=== PATIENT | female | born 1975 | race African-American/Black ===

== ENCOUNTER 2016-10-14 19:03 | Observation (INO) | payer MEDICAID, OTHER ==
[~2016-10-14] VITALS: Ht 172.7 cm; Wt 65.0 kg
[~2016-10-14 19:03] MED LIST: METH750T2 PO; PRED50 PO
[2016-10-14 19:06] VITALS: BP 142/90; PULSE 102; RESP 16; TEMP 98.6; O2SAT 99
[2016-10-14] MEDS ORDERED: PRED5TAB PO (19:57)
[2016-10-14 20:03] VITALS: BP 133/76; PULSE 104; RESP 18; O2SAT 96
--- NOTE | 2016-10-14 20:11 | PD ---
HPI . Vaginal bleeding Chief Complaint: Diabetes Territory Manager Problem/Complaint Time Seen by Provider: 19:35 Travel History International Travel<30 days: No Contact w/Intl Traveler<30days: No Traveled to known affect area: No History of Present Illness HPI This patient presents with the acute onset of heavy vaginal bleeding. Onset was about 6 hours ago. She is passing clots. The bleeding is associated with pelvic pain. She states the pelvic pain is severe. No modifying factors. She reports as normal menstrual cycle approximately 6 weeks ago. She states that her menstrual cycles are usually regular. She states that she has had some spotting for the past couple of weeks. She denies any antecedent dyspareunia. She has had a subjective fever today. [facility] Past Medical History Medical History: Denies Significant Hx Diminished Hearing: No Kidney Stones: Yes Immunizations Current: Yes Tetanus Vaccination: < 5 Years Influenza Vaccination: No ?: Unknown LMP: 10/14/16 : 4 Para: 3 Miscarriage: 0 : 0 Past Surgical History Surgical History: No Previous Surgery Social History Alcohol Use: No Tobacco Use: No Substance Use: No Allergies-Medications (Allergen,Severity, Reaction): Coded Allergies: No Known Allergies (Verified , 03/02/13) Reported Meds & Prescriptions Reported Meds & Active Scripts Active Reported Prednisone 5 Mg Tab 5 Mg PO BID Review of Systems Except as stated in HPI: all other systems reviewed are Neg General / Constitutional: Positive: Fever, Chills Genitourinary: Positive: Pelvic Pain, Dysmenorrhea, Vaginal Bleeding, No: Urgency, Frequency, Dysuria, Dyspareunia, Discharge Physical Exam Narrative GENERAL: Awake and alert and uncomfortable appearing. SKIN: Warm and dry. HEAD: Atraumatic. Normocephalic. EYES: Pupils equal and round. ENT: No nasal bleeding or discharge. Mucous membranes pink and moist. NECK: Trachea midline. Neck supple. CARDIOVASCULAR: Regular rate and rhythm. RESPIRATORY: No accessory muscle use. GASTROINTESTINAL: Abdomen soft. Suprapubic tenderness. Nondistended. : Blood pooling in the vaginal vault. Samples were not obtained because of the heavy bleeding. On bimanual exam, the os is closed. The right adnexa and ovary feel normal and are nontender. The left adnexa is full and tender. MUSCULOSKELETAL: No obvious deformities. No edema. NEUROLOGICAL: Awake and alert. No obvious cranial nerve deficits. Motor grossly within normal limits. Normal speech. PSYCHIATRIC: Appropriate mood and affect; insight and judgment normal. Data Data Last Documented VS Vital Signs Date Time Temp Pulse Resp B/P Pulse Ox O2 Delivery O2 Flow Rate FiO2 10/14/16 23:10 87 18 113/70 100 Room Air 10/14/16 19:06 98.6 Orders Ed Urine Pregnancytest Poc (10/14/16 19:35) Beta Hcg (Quant/Titer) (10/14/16 20:06) Type And Screen (10/14/16 20:06) Us Pelvis (Ques Pr/Ect)W Trans (10/14/16 ) Iv Access Insert/Monitor (10/14/16 20:06) Sodium Chloride 0.9% Flush (Ns Flush) (10/14/16 20:15) Ondansetron Inj (Zofran Inj) (10/14/16 20:15) Hydromorphone Pf Inj (Dilaudid Pf Inj) (10/14/16 20:15) Ed Poc Ultrasound (10/14/16 20:06) Complete Blood Count With Diff (10/14/16 20:23) Basic Metabolic Panel (Bmp) (10/14/16 20:23) Hydromorphone Pf Inj (Dilaudid Pf Inj) (10/14/16 20:45) Morphine Inj (Morphine Inj) (10/14/16 21:30) Labs Laboratory Tests Test 10/14/16 10/14/16 20:27 20:28 Sodium Level 137 MEQ/L Potassium Level 3.7 MEQ/L Chloride Level 104 MEQ/L Carbon Dioxide Level 25.5 MEQ/L Anion Gap 8 MEQ/L Blood Urea Nitrogen 8 MG/DL Creatinine 0.82 MG/DL Estimat Glomerular Filtration 94 ML/MIN Rate Random Glucose 100 MG/DL Calcium Level 8.5 MG/DL Human Chorionic Gonadotropin, 2670 MIU/ML Quant White Blood Count 10.0 TH/MM3 Red Blood Count 4.52 MIL/MM3 Hemoglobin 12.4 GM/DL Hematocrit 38.0 % Mean Corpuscular Volume 84.1 FL Mean Corpuscular Hemoglobin 27.4 PG Mean Corpuscular Hemoglobin 32.6 % Concent Red Cell Distribution Width 14.1 % Platelet Count 331 TH/MM3 Mean Platelet Volume 7.3 FL Neutrophils (%) (Auto) 68.4 % Lymphocytes (%) (Auto) 24.5 % Monocytes (%) (Auto) 5.8 % Eosinophils (%) (Auto) 1.0 % Basophils (%) (Auto) 0.3 % Neutrophils # (Auto) 6.9 TH/MM3 Lymphocytes # (Auto) 2.4 TH/MM3 Monocytes # (Auto) 0.6 TH/MM3 Eosinophils # (Auto) 0.1 TH/MM3 Basophils # (Auto) 0.0 TH/MM3 CBC Comment DIFF FINAL Differential Comment Blood Type O POSITIVE Antibody Screen NEGATIVE MDM Medical Decision Making Medical Screen Exam Complete: Yes Emergency Medical Condition: Yes Differential Diagnosis Differential diagnosis of vaginal bleeding includes but is not limited to dysfunctional uterine bleeding, normal menstrual cycle, ectopic , spontaneous AB, PID. Narrative Course This patient presents with the acute onset of heavy vaginal bleeding. Her last normal menstrual cycle was 6 weeks ago. Her urine test is positive. Quantitative hCG, type and Rh and pelvic ultrasound have been ordered. IV access has been obtained. CBC Diagram 10/14/16 20:28 BMP Diagram 10/14/16 20:27 Quantitative hCG is about 2600. Her blood type is O+. The patient has continued to have severe pain and heavy vaginal bleeding. She has had 2 doses of Dilaudid, 1 mg IV and is now receiving morphine, 4 mg IV. US>>There is no evidence for intrauterine . Endometrial stripe appears thickened. There is a small uterine fibroid measures 1.7 cm in size. The examination is limited since the patient could not tolerate complete evaluation of the adnexa, however no gross adnexal mass is identified. The patient has been seen by gynecology. She will be taken to the operating room for an exploratory laparotomy. Physician Communication Physician Communication Dr. Navas, [employer] will see the patient. Diagnosis Primary Impression: Bleeding in early Additional Impression: Pelvic pain affecting Qualified Code: O26.891 - Pelvic pain affecting in first trimester, antepartum Condition: Stable Janiya Genao MD Oct 14, 2016 20:11
[2016-10-14] MEDS ORDERED: ONDANSETRON HCL 4 MG/2 ML VIAL IVP ONE (20:15)
[2016-10-14] MEDS ORDERED: HYDROmorphone HCL PF 1 MG/ML VIAL IVS ONE (20:15)
[2016-10-14] MEDS ORDERED: SODIUM CHLORIDE 0.9% FLUSH 10 ML FLUSH IVF PRN (20:15)
[2016-10-14] MEDS ORDERED: HYDROmorphone HCL PF 1 MG/ML VIAL IV PUSH ONE (20:45)
[2016-10-14 21:17] LABS: HEMO FLAGS DIFF FINAL; MEAN CELL VOLUME 84.1 FL (80.0-100.0); MEAN CORPUSCULAR HEMOGLOBIN 27.4 PG (27.0-34.0); MEAN CORPUSCULAR HGB CONC 32.6 % (32.0-36.0); PLATELET COUNT 331 TH/MM3 (150-450); RED BLOOD COUNT 4.52 MIL/MM3 (4.00-5.30); RED CELL DISTRIBUTION WIDTH 14.1 % (11.6-17.2)
[2016-10-14 21:18] LABS: AUTOMATED NEUTROPHIL # 6.9 TH/MM3 (1.8-7.7); BASOPHIL % 0.3 % (0.0-2.0); EOSINOPHIL # 0.1 TH/MM3 (0-0.4); LYMPH % 24.5 % (9.0-44.0); LYMPHOCYTE # 2.4 TH/MM3 (1.0-4.8); MONO % 5.8 % (0.0-8.0); NEUT % 68.4 % (16.0-70.0)
[2016-10-14 21:33] LABS: BICARBONATE 25.5 MEQ/L (21.0-32.0); POTASSIUM 3.7 MEQ/L (3.5-5.1)
[2016-10-14 21:56] LABS: BETA HCG QUANT 2670 MIU/ML (0-5)
--- NOTE | 2016-10-14 22:10 | RADRPT ---
EXAM DATE/TIME: 10/14/2016 21:06 [place] COMPARISON: No previous studies available for comparison. INDICATIONS : Vaginal bleeding. LAB(S): Beta-hC MEDICAL HISTORY : None. SURGICAL HISTORY : None. ENCOUNTER: Initial ACUITY: 1 day PAIN SCORE: 10/10 LOCATION: Bilateral pelvis MEASUREMENTS: UTERUS: 12.5 x 7.1 x 7.0 cm ENDOMETRIAL STRIPE: 17 mm RIGHT OVARY: Not visualized cm LEFT OVARY: Not visualized cm FREE FLUID: No FINDINGS: There is no evidence for intrauterine . Endometrial stripe appears thickened. There is a sma ll uterine fibroid measures 1.7 cm in size. The examination is limited since the patient could not to lerate complete evaluation of the adnexa, however no gross adnexal mass is identified. CONCLUSION: No evidence for IUP and limited evaluation without clear evidence for ectopic at this time, however it is difficult to exclude such possibility particularly on the left side. Yovani Blakely MD on October 14, 2016 at 22:06 Board Certified Radiologist. This report was verified electronically.
[2016-10-14 22:11] VITALS: BP 128/80; PULSE 92; RESP 18; O2SAT 100
[2016-10-14] MEDS: MORPHINE SULFATE 8 MG/ML INJ IV PUSH PRN ×2 (22:15→23:09)
[2016-10-14 23:10] VITALS: BP 113/70; PULSE 87; RESP 18; O2SAT 100
--- NOTE | 2016-10-14 23:36 | PD ---
HPI Chief Complaint Vaginal bleeding 1 day Abdominal pain 1 day Date Seen: Oct 14, 2016 Time Seen: 23:00 Travel History International Travel<30 Days: No Contact w/Intl Traveler<30Days: No Known Affected Area: No History of Present Illness HPI Pt is a 41 yo who presents with c/o abdominal pain today. Pt states LMP was 09-03-2016 , but has been spotting past 2 weeks. Yesterday she passed blood clot and today bleeding has increased. Pain started today, low abdomen and back, and pt reported to ER. Pain is constant with exacerbations. Worse with movement denies nausea and vomiting. No urinary symptoms. No change in bowel movements. Pt found out she had positive urine test in ER Para: 3 : 6 Last Menstrual Period: Sep 03, 2016 Miscarriage: 1 : 1 History Past Medical History Narrative Medical h/o kidney stones Past Surgical History Narrative Surgical TOP Family History Family History: Negative Social History Alcohol Use: Yes Tobacco Use: Yes Substance Abuse: No Allergies-Medications (Allergen,Severity, Reaction): Coded Allergies: No Known Allergies (Verified , 03/02/13) Home Meds Reported Medications Prednisone 5 Mg Tab5 Mg PO BID Ref 0 10/14/16 Discontinued Scripts Methocarbamol 750 Mg [id number] Mg PO QID PRN (MUSCLE SPASM) #30 TAB Prov:Gretel Wyatt 03/02/13 Prednisone (Deltasone 50 Mg Tab)50 Mg Tab50 Mg PO DAILY 5 Days Prov:Gretel Wyatt 03/02/13 Review of Systems Except as stated in HPI: all other systems reviewed are Neg Physical Exam Vital Signs Date Time Temp Pulse Resp B/P Pulse Ox O2 Delivery O2 Flow Rate FiO2 10/14/16 22:11 92 18 128/80 100 10/14/16 20:03 104 18 133/76 96 Room Air 10/14/16 19:54 18 10/14/16 19:06 98.6 102 16 142/90 99 Room Air Narrative GENERAL: Well-nourished, well-developed patient. SKIN: Warm and dry. HEAD: Normocephalic and atraumatic. EYES: No scleral icterus. No injection or drainage. ENT: No nasal drainage noted. Mucous membranes pink. Airway patent. NECK: Supple, trachea midline. No JVD. CARDIOVASCULAR: Regular rate and rhythm without murmurs, gallops, or rubs. RESPIRATORY: Breath sounds equal bilaterally. No accessory muscle use. BREASTS: Bilateral exam showed no masses , no retractions, no nipple discharge. ABDOMEN/GI: Abdomen soft, non-tender, bowel sounds present, no rebound, no guarding Gravid to [-] weeks size Fundal Height: [-] GENITOURINARY: External Genitalia: intact and normal in appearance BUS glands: [-] Cervix: [firm, with positive cervical motion tenderness-] Dilatation:closed Uterus slightly enlarged size, anteverted, active bleeding with blood clot noted Tender over both adnexae more on LEFT. EXTREMITIES: No cyanosis or edema. BACK: Nontender without obvious deformity. No CVA tenderness. NEUROLOGICAL: Awake and alert. Motor and sensory grossly within normal limits. Five out of 5 muscle strength in all muscle groups. Normal speech. Data Data Orders Ed Urine Pregnancytest Poc (10/14/16 19:35) Beta Hcg (Quant/Titer) (10/14/16 20:06) Type And Screen (10/14/16 20:06) Us Pelvis (Ques Pr/Ect)W Trans (10/14/16 ) Iv Access Insert/Monitor (10/14/16 20:06) Sodium Chloride 0.9% Flush (Ns Flush) (10/14/16 20:15) Ondansetron Inj (Zofran Inj) (10/14/16 20:15) Hydromorphone Pf Inj (Dilaudid Pf Inj) (10/14/16 20:15) Ed Poc Ultrasound (10/14/16 20:06) Complete Blood Count With Diff (10/14/16 20:23) Basic Metabolic Panel (Bmp) (10/14/16 20:23) Hydromorphone Pf Inj (Dilaudid Pf Inj) (10/14/16 20:45) Morphine Inj (Morphine Inj) (10/14/16 21:30) Labs Laboratory Tests Test 10/14/16 10/14/16 20:27 20:28 Sodium Level 137 Potassium Level 3.7 Chloride Level 104 Carbon Dioxide Level 25.5 Anion Gap 8 Blood Urea Nitrogen 8 Creatinine 0.82 Estimat Glomerular Filtration 94 Rate Random Glucose 100 Calcium Level 8.5 Human Chorionic Gonadotropin, 2670 Quant White Blood Count 10.0 Red Blood Count 4.52 Hemoglobin 12.4 Hematocrit 38.0 Mean Corpuscular Volume 84.1 Mean Corpuscular Hemoglobin 27.4 Mean Corpuscular Hemoglobin 32.6 Concent Red Cell Distribution Width 14.1 Platelet Count 331 Mean Platelet Volume 7.3 Neutrophils (%) (Auto) 68.4 Lymphocytes (%) (Auto) 24.5 Monocytes (%) (Auto) 5.8 Eosinophils (%) (Auto) 1.0 Basophils (%) (Auto) 0.3 Neutrophils # (Auto) 6.9 Lymphocytes # (Auto) 2.4 Monocytes # (Auto) 0.6 Eosinophils # (Auto) 0.1 Basophils # (Auto) 0.0 CBC Comment DIFF FINAL Differential Comment Blood Type O POSITIVE Antibody Screen NEGATIVE MDM Medical Record Reviewed: Yes Interpretation(s) Quant hCG 2670 with nil seen IUP. Abdominal pain with positive CMT Differential miscarriage versus ectopic. Physician Communication Pt has abdominal pain and Quant hCG of 2670 with nil seen intrauterine. Positive CMT. Differential diagnosis is miscarriage versus ectopic We will need to exclude ectopic. She will need laparoscopy. Case discussed with Dr Post, and plan is for diagnostic laparoscopy. We will start IVF, place Jenkins catheter Diagnosis Diagnosis: Primary Impression: Bleeding in early Additional Impression: Pelvic pain affecting Qualified Code: O26.891 - Pelvic pain affecting in first trimester, antepartum Condition: Serious Nash Navas MD Oct 14, 2016 23:36
[2016-10-14] MEDS ORDERED: DEXTROSE 5%-LACTATED RING INJ 1,000 ML IV SCH (23:45)
[2016-10-14] MEDS ORDERED: ceFAZolin 2 GM PREMIX 50 ML IV ONE (23:45)
[2016-10-15] MEDS ORDERED: fentaNYL CITRATE 250 MCG/5 ML AMP ONE (00:42)
[2016-10-15 00:51] LABS: HEMATOCRIT 34.8 % (35.0-46.0); MEAN CELL VOLUME 83.8 FL (80.0-100.0); MEAN CORPUSCULAR HEMOGLOBIN 28.2 PG (27.0-34.0); MEAN CORPUSCULAR HGB CONC 33.6 % (32.0-36.0); PLATELET COUNT 285 TH/MM3 (150-450); RED BLOOD COUNT 4.15 MIL/MM3 (4.00-5.30); RED CELL DISTRIBUTION WIDTH 14.2 % (11.6-17.2); REVIEW FLAG FINAL; WHITE BLOOD COUNT 8.8 TH/MM3 (4.0-11.0)
[2016-10-15] MEDS ORDERED: DO NOT ADM ANY ANTICOAGULANT DRUGS PRN (02:30)
[2016-10-15 02:32] VITALS: TEMP 97.6
[2016-10-15] MEDS ORDERED: ACETAMINOPHEN/HYDROcodone 325 MG/7.5 MG TAB PO PRN (02:45)
[2016-10-15] MEDS ORDERED: *morphine SULFATE 8 MG/ML PERIprocedure ONLY ONE (02:53)
[2016-10-15] MEDS ORDERED: KETOROLAC TROMETHAMINE 30 MG/ML (IVP) VIAL ONE (02:54)
[2016-10-15] MEDS ORDERED: ONDANSETRON HCL 4 MG/2 ML VIAL IV PRN (03:00)
[2016-10-15] MEDS ORDERED: METHOTREXATE SOD PF 50 MG/2 ML VIAL IM SCH (03:15)
[2016-10-15 04:00] VITALS: BP 119/73; PULSE 80; RESP 16; O2SAT 97
[2016-10-15] MEDS ORDERED: METHOTREXATE IM ONE (04:00)
--- NOTE | 2016-10-15 11:52 | MP ---
cc: ELIZABETH PURDY MD DATE OF SURGERY: 10/15/2016 PREOPERATIVE DIAGNOSIS Pelvic pain, uterine bleeding. POSTOPERATIVE DIAGNOSIS Pelvic pain, uterine bleeding. OPERATION Dilation and curettage, diagnostic laparoscopy. SURGEON Elizabeth Purdy MD ANESTHESIA Dr. Mixon, general endotracheal. COMPLICATIONS None. ESTIMATED BLOOD LOSS 50 ccs. INDICATIONS This 41-year-old 6, para 3-0-2-3 was evaluated in the emergency room by the laborist on duty. Because the pelvic ultrasound failed to show the tubes and ovaries and there was no evidence of an intrauterine combined with an HCG level of 2000, it was decided that a laparoscopy was indicated. FINDINGS At the time of surgery the patient was found to have a very small amount of dark blood in the pelvis. Tubes and ovaries were free bilaterally and had no evidence of ectopic associated. On D&C there were some curettings suggestive of decidua but no obvious trophoblastic tissue was obtained. PROCEDURE The patient was taken to the operating room and placed supine on the operating room table. After general endotracheal anesthesia the patient was prepped and draped in Yellofin stirrups. An open-sided speculum was placed in the vagina. The anterior lip of the cervix was grasped with a single-tooth tenaculum. The uterine cervix was dilated to accept a small curette which was used to obtain a small amount of deciduous looking tissue. This was collected and sent as a specimen for endometrial curettings. After emptying the bladder in regloving, attention was turned to the abdomen. A 5 mm incision was made in the umbilicus and the laparoscopic port was introduced without difficulty. CO2 was used to distend the abdomen, and while the patient was still flat the left lower quadrant port was placed using transillumination and direct visualization to avoid major blood vessels. Using a grasper, the findings described above were noted. Since no further surgery was indicated the pneumoperitoneum was released. The ports were removed. The port sites were closed with 4-0 Monocryl subcuticularly followed by Dermabond. The patient was replaced supine, awakened and taken to the recovery room breathing on her own. She tolerated the procedure well. Sponge, needle and instrument counts were correct. She received 1 gram of Ancef intraoperatively and is anticipated to go home in a few hours. MD ALECIA Aviles/TLL /2:41 AM /8:47 AM
[2016-10-15] MEDS ORDERED: PROPOFOL 200 MG/20 ML AMP IV ONE ×2 (12:00)
[2016-10-15] MEDS ORDERED: NEOSTIGMINE 3 MG/3 ML SYR IV ONE ×2 (12:00)
== END 2016-10-15 03:04 | disposition home or self-care (01) ==
LOC: NEPE 19:03 → NEDA 10-15 00:02 → HPAC 10-15 01:38 → UNDODEPER 10-17 00:11
PROVIDERS: ADMIT Obstetrics & Gynecology; ATTEND Obstetrics & Gynecology
PROC: 0UDB7ZX Extraction of Endometrium, Via Natural or Artificial Opening, Diagnostic (ICD-10-PCS; principal; 2016-10-15 01:27)
DX: N93.9 Abnormal uterine and vaginal bleeding, unspecified (principal); R10.2 Pelvic and perineal pain
CPT/HCPCS: 01922; 58120; 76700; 76817; 80048; 84702; 84703; 85025; 85027; 86850; 86900; 86901; 88305; 96374; 96375; 96376; 99285; G0378; J0690; J1170; J1885; J2270; J2405; J2710; J3010; J7121; J9250